=== PATIENT | female | born 1965 | race Caucasian/White ===

== ENCOUNTER 2016-10-14 09:08 | Emergency (ER) | payer BC ==
--- NOTE | 2016-10-14 09:32 | Emergency Department Record ---
History of Present Illness - General Chief Complaint: Abdominal Pain Stated Complaint: ABD PAIN FOR 10 DAYS Time Seen by Provider: 10/14/16 09:22 Source: Patient, Family Mode of Arrival: Ambulatory Limitations: No limitations - History of Present Illness Initial Comments: 50 yo female presents with abdominal pain for about 3 weeks. Initial pain occurred on the . It was a crampy pain on the left. She has some loose stools at that time. No blood. No fevers. She has had nausea but not vomiting. No rash. The symptoms resolved but have returned the last 10 days cramps and loose stools at times. No GI or surgical history. She has IBS but this pattern is different. She had a colonoscopy 8 years ago. PCP is Gilda. Complaint: Abdominal pain Onset/Timin -: Days(s) Location: [facility] Radiation: None Migration to: No migration Severity: Moderate Quality: Cramping, Fullness, Other Consistency: Constant Improves With: Nothing Worsens With: Nothing Associated Symptoms: Nausea - Related Data LMP (females 10-50): Unknown Patient : No (IUD) Previous Rx's Medication Instructions Recorded Hyoscyamine Sulfate [Levsin-Sl] 0.125 mg SL BID #20 tab.subl 10/14/16 Allergies Allergy/AdvReac Type Severity Reaction Status Date / Time No Known Drug Allergies Allergy Verified 10/14/16 09:17 Travel Screening - Travel/Exposure Within Last 30 Days Have you traveled within the last 30 days?: No - Travel/Exposure Within Last Year Have you traveled outside the [place] in the last year?: No - Additonal Travel Details Have you been exposed to anyone with a communicable illness?: No - Travel Symptoms Symptom Screening: None Review of Systems Constitutional: Denies: Chills, Fever, Malaise, Night sweats, Weakness Eyes: Denies: Eye discharge, Eye pain, Photophobia, Vision change ENT: Denies: Congestion, Throat pain Respiratory: Denies: Cough, Dyspnea, Hemoptysis, Stridor, Wheezes Cardiovascular: Denies: Chest pain, Palpitations, Syncope Endocrine: Denies: Fatigue Gastrointestinal: Reports: Abdominal pain, Diarrhea, Nausea. Denies: Constipation, Hematemesis, Hematochezia, Melena, Vomiting Genitourinary: Denies: Dysuria, Urgency Musculoskeletal: Denies: Arthralgia, Back pain Skin: Denies: Bruising, Change in color, Rash Neurological: Denies: Confusion, Headache Psychiatric: Denies: Anxiety Hematological/Lymphatic: Denies: Blood Clots, Easy bleeding, Easy bruising, Swollen glands Past Medical History - SOCIAL HISTORY Smoking Status: Never smoker Alcohol Use: Occassional Drug Use: None - RESPIRATORY Hx Respiratory Disorders: No - CARDIOVASCULAR Hx Cardio Disorders: No - NEURO Hx Neuro Disorders: No - GI Hx GI Disorders: No - Hx Genitourinary Disorders: No - ENDOCRINE Hx Endocrine Disorders: No - MUSCULOSKELETAL Hx Musculoskeletal Disorders: No - PSYCH Hx Psych Problems: No - HEMATOLOGY/ONCOLOGY Hx Hematology/Oncology Disorders: No Family Medical History Any Significant Family History?: No Physical Exam - General General Appearance: Alert, Oriented x3, Cooperative, No acute distress Limitations: No limitations - Head Head exam: Atraumatic, Normal inspection - Eye Eye exam: Normal appearance, PERRL. negative: Conjunctival injection, Scleral icterus - ENT ENT exam: Normal exam, Mucous membranes moist Ear exam: Normal external inspection Nasal Exam: Normal inspection Mouth exam: Normal external inspection Teeth exam: Normal inspection Throat exam: Normal inspection - Neck Neck exam: Normal inspection, Full ROM. negative: Tenderness - Respiratory Respiratory exam: Normal lung sounds bilaterally. negative: Respiratory distress - Cardiovascular Cardiovascular Exam: Regular rate, Normal rhythm, Normal heart sounds - GI/Abdominal GI/Abdominal exam: Soft, Normal bowel sounds. negative: Distended, Guarding, Rebound, Rigid, Tenderness - Rectal Rectal exam: Deferred - exam: Deferred - Extremities Extremities exam: Normal inspection, Full ROM, Normal capillary refill. negative: Joint swelling, Pedal edema, Tenderness - Back Back exam: Reports: Normal inspection, Full ROM. Denies: Muscle spasm, Rash noted, Tenderness - Neurological Neurological exam: Alert, Normal gait, Oriented X3 - Psychiatric Psychiatric exam: Normal affect, Normal mood. negative: Agitated, Anxious - Skin Skin exam: Dry, Intact, Normal color, Warm Course Vital Signs 10/14/16 09:18 Temperature 98.0 F Pulse Rate 83 Respiratory 20 Rate Blood Pressure 173/102 Pulse Ox 99 - Reevaluation(s) Reevaluation #1: The patient was seen and examined Labs and CT scan ordered 10/14/16 09:33 Reevaluation #2: The labs were reviewed. No acute changes of the CBC,CMP,Lipase or UA. 10/14/16 10:06 Reevaluation #3: CT reviewed. No acute chagnes. fibroids noted, renal cyst and right OVarian cyst. 10/14/16 13:04 DC home with Levsin and GI consult for ongoing work up of the symptoms 10/14/16 13:05 Medical Decision Making - Lab Data Result diagrams: 10/14/16 09:35 10/14/16 09:35 Disposition Disposition: Discharge Clinical Impression: Abdominal pain Qualifiers: Abdominal location: left upper quadrant Qualified Code(s): R10.12 - Left upper quadrant pain Disposition: Home, Self-Care Condition: (1) Good Instructions: Abdominal Pain (ED), Irritable Bowel Syndrome (ED) Additional Instructions: Follow up with your doctor as scheduled You are being referred to the GI clinic as [facility] Levsin as directed for cramps Prescriptions: Hyoscyamine Sulfate [Levsin-Sl] 0.125 mg SL BID #20 tab.subl Referrals: ANEUDY RODGERS [DOCTOR OF OSTEOPATH] - [facility] Special[facility] [Provider Group] Forms: Patient Portal Access Time of Disposition: 13:07
[2016-10-14] MEDS: 0.9 % SODIUM CHLORIDE 1,000 ML BAG IV ONE (09:37)
[2016-10-14] MEDS: ONDANSETRON HCL IV 4 MG/2 ML VIAL IVP ONE (09:37)
[2016-10-14 09:43] LABS: BASO % 0.4 % (0-6); EOS % 0.8 % (0-6); GRAN % 67.4 % (47-80); HEMATOCRIT 41.7 % (35.0-47.0); HEMOGLOBIN 14.5 gm/dl (11.6-16.0); LYMPH % 23.8 % (16-45); MEAN CELL VOLUME 84.9 fl (81-97); MEAN CORPUSCULAR HEMOGLOBIN 29.5 pg (27-33); MEAN CORPUSCULAR HGB CONC 34.8 g/dl (32-36); MEAN PLATELET VOLUME 9.5 fl (7.4-10.4); MONO % 7.6 % (0-9); PLATELET COUNT 228 K/uL (130-400); RED BLOOD COUNT 4.91 M/uL (3.80-5.40); URINE APPEARANCE CLEAR; URINE BILIRUBIN NEGATIVE (NEGATIVE); URINE BLOOD TRACE-I (NEGATIVE); URINE COLOR YELLOW; URINE GLUCOSE (UA) NEGATIVE (NEGATIVE); URINE KETONE NEGATIVE (NEGATIVE); URINE LEUKOCYTE ESTERASE NEGATIVE (NEGATIVE); URINE NITRITE NEGATIVE (NEGATIVE); URINE PROTEIN NEGATIVE (NEGATIVE); URINE UROBILINOGEN 0.2 E.U./dL (0.20 - 1.00); WHITE BLOOD COUNT W/O DIFF 4.8 K/uL (4.2-12.2)
[2016-10-14 09:52] LABS: URINE EPITHELIAL CELLS 0 - 2 (FEW); URINE WBC NONE SEEN (0-2/hpf)
[2016-10-14 09:56] LABS: ALBUMIN 4.7 gm/dL (3.5-5.0); ALKALINE PHOSPHATASE 60 U/L (38-126); ALT/SGPT 38 U/L (9-52); ANION GAP 9.7 (7-16); AST/SGOT 25 U/L (14-36); BILIRUBIN,TOTAL 1.02 mg/dL (0.2-1.3); BLOOD UREA NITROGEN 9 mg/dL (7-17); CARBON DIOXIDE 25.3 mmol/L (22-30); CREATININE 0.7 mg/dL (0.52-1.04); EST GLOMERULAR FILTRATION RATE > 60 ml/min; GLUCOSE,RANDOM 110 mg/dL (70-110); LIPASE 71 U/L (23-300); TOTAL PROTEIN 7.1 gm/dL (6.3-8.2)
--- NOTE | 2016-10-17 15:21 | CT SCAN REPORT ---
DATE: 10/14/2016. EXAM: CT OF THE ABDOMEN AND PELVIS. HISTORY: Left-sided abdominal pain, upper left abdomen. TECHNIQUE: CT of the abdomen and pelvis was performed following intravenous and oral contrast administration. A total of 100 mL of Omnipaque 300 contrast was used for this examination. COMPARISON: None. FINDINGS: The lung bases are unremarkable. The liver and spleen are unremarkable. No pancreatic mass or inflammatory change. The bile ducts are not dilated. There are no calcified gallstones. No adrenal lesion is seen. There is bilateral renal function with no renal mass or hydronephrosis. There is a left renal cyst present. There is no aortic aneurysm. No periaortic mass or adenopathy identified. There are no dilated bowel loops. No pelvic mass or adenopathy. There is an intrauterine device identified in the uterus. There is focal prominence of the uterine fundus 4.9 x 4.4 cm; possibly a fibroid. There is a second partially calcified fundal structure measuring 1.8 x 1.5 cm; probably a fibroid. The uterus is otherwise unremarkable. There is a right ovarian cyst measuring 3.0 cm in size. The pelvis is otherwise unremarkable. IMPRESSION: 1. NO ACUTE ABDOMINAL OR PELVIC PROCESS IDENTIFIED. 2. PROBABLE UTERINE FIBROIDS. 3. A 2.9 CM RIGHT OVARIAN CYST. AN ULTRASOUND COULD BE PERFORMED FOR FURTHER ASSESSMENT. 4. AN INTRAUTERINE DEVICE IN THE UTERUS. 5. A SIMPLE-APPEARING LEFT RENAL CYST. JOB NUMBER: [id number] MTDD
== END 2016-10-14 13:21 | disposition home or self-care (01) ==
LOC: ER 09:08
DX: R10.12 Left upper quadrant pain (principal); R11.0 Nausea
CPT/HCPCS: 99284 ×2; 96374; 83690; 85025; 80053; 81001; 81025; 74177; Q9967; J2405; J7030